=== PATIENT | female | born 1985 | race Caucasian/White ===

== ENCOUNTER 2022-05-21 10:39 | Outpatient (CLI) | payer OTHER, SELFPAY ==
--- NOTE | ~2022-05-21 | MR_ITS ---
EXAMINATION: MR breast BI wo/w con INDICATION: Bilateral breast pain, fibrocystic change of the breast TECHNIQUE: Axial VIBRANT pre and dynamic post contrast, Sagittal VIBRANT post contrast, Axial T2 STIR ASSET COMPARISON: None CONTRAST: Multihance, 15 cc BREAST COMPOSITION: Extreme fibroglandular tissue FINDINGS: RIGHT BREAST: There is marked background parenchymal enhancement. No abnormal enhancement is present after contrast administration. No pathologically enlarged axillary or internal mammary lymph nodes ar e identified. There are multiple cysts of the breast which measure up to 12 mm in the lower inner roger ast. LEFT BREAST: There is marked background parenchymal enhancement. No abnormal enhancement is present a fter contrast administration. No pathologically enlarged axillary or internal mammary lymph nodes are identified. There are multiple cysts of the breast which measure up to 16 mm in the upper outer [address]. IMPRESSION: 1. Fibrocystic change of the breasts without suspicious findings. Routine screening mammography is re commended. BI-RADS Category 2: Benign finding(s). Reviewed, dictated and finalized at location A. IMPRESSION: 1. Fibrocystic change of the breasts without suspicious findings. Routine scree angella mammography is recommended. BI-RADS Category 2: Benign finding(s).
== END 2022-05-21 10:40 | disposition home or self-care (01) ==
PROVIDERS: PCP Family Medicine; Visit Provider Family Medicine
DX: N64.4 Mastodynia (principal); R92.8 Other abnormal and inconclusive findings on diagnostic imaging of breast
CPT/HCPCS: 77049; A9577; C8908

== ENCOUNTER 2022-09-09 01:51 | Day surgery (SDC) | payer OTHER, SELFPAY ==
[2022-08-26 10:17] VITALS: BMI 29.3
--- NOTE | 2022-08-26 10:24 | PC.NURSE ---
Report to the Outpatient Waiting Room, entrance under the green pavilion located off [facility], at time 06:00AM on date 09/09/22. Planned Procedure Time: 07:30AM. Time changes happen often and if your time is changed the preop area will call you the afternoon before. - You and your visitor will be asked to self-screen and do not enter if you have any COVID symptoms. - Only one visitor is requested with a max of two and NO children visitors are allowed at this time. - The patient visitor may be requested to leave or wait in car when not with patient due to distancing restrictions. - A mask is optional within the hospital. Patients may have clear liquids (water, carbonated beverages, clear teas, apple juice) until 3 hours prior to surgery (4:30AM) with a maximum of 20 ounces. - No food from midnight until time of surgery Take the following medications with a SIP of water the morning of surgery: SYNTHROID Medications to discontinue per physician: N/A Date to take last dose: N/A Please no make-up, nail macanese, hairspray, perfume, deodorant, or body powder the day of surgery. No jewelry (including any body piercings) or valuables the day of surgery, leave them at home. Please take a shower or bath the night before, or the morning of, surgery with an antibacterial soap. Wear comfortable, loose fitting clothing. - Jewelry must be removed prior to entering the operating room. Rings and piercings that are not removed may be cut off. - The hospital will not accept responsibility for valuables. - Please leave all valuables, including medications, at home the day of surgery. If you are going home after surgery, a licensed bus driver supervisor must drive you home. - NO public transportation without another adult if you receive anesthesia. - We recommend that an adult stay with you for 24 hours following discharge. - We also recommend that you do not drive, make important decision, drink alcoholic beverages, or take any drugs that were not prescribed by your health care provider for at least 24 hours after your discharge time. Follow any additional instructions given to you from your surgeon. If you or anyone in your household have experienced Covid symptoms in the past week, please notify your surgeon or the nurse liaison at the phone number below for possible testing. Telephone instructions given to PATIENT and asked if any additional questions and then verbalized understanding. Patient advised to call surgeon office or pre surgery nurse liaison [phone] if any additional questions.
[2022-09-09] VITALS (10 sets, daily range): BP systolic 96–115; BP diastolic 45–68; PULSE 54–78; RESP 14–16; TEMP 36.2–36.3; O2SAT 100
[2022-09-09] MEDS: ACETAMINOPHEN 500 MG TABLET 1000 MG PO (06:32)
[2022-09-09] MEDS: KETOROLAC 15 MG/ML VIAL (*BKC) IV PUSH (06:39)
[2022-09-09] MEDS: LACTATED RINGERS 1,000 ML 30 ML IV CONT ×2 (06:40→09:14)
--- NOTE | 2022-09-09 07:11 | P.PNAN_ITS ---
Anes - Initial Pre Proc Eval Procedure: Operation Date: 09/09/22 07:30 Proposed Procedures p Laparoscopic Bilateral Salpingectomy - Marissa Beaver MD Date/Time: 09/09/22 07:11 Surgeon: Marissa Beaver MD Pre Op Diagnosis: sterilization Patient Data Age: 36 Gender: F Height: 1.65 m Weight: 78.9 kg Last Vital Signs Temp 97.4 F L 09/09/22 06:13 Pulse 75 09/09/22 06:13 Resp 16 09/09/22 06:13 BP 115/62 09/09/22 06:13 Pulse Ox 100 09/09/22 06:13 O2 Del Method Room Air 09/09/22 06:13 Allergies Allergy/AdvReac Type Severity Reaction Status Date / Time amoxicillin Allergy Mild Rash Verified 09/09/22 06:29 Home Medications Medication Instructions Recorded Confirmed Type levothyroxine 50 mcg tablet 50 mcg PO DAILY 03/14/21 09/09/22 History (Synthroid) Patient hx anesthesia problems: none Family hx anesthesia problems: none Results Review: All pre-operative results and documents have been reviewed as part of the pre- operative evaluation. [facility] Social History Social History Smoking status: Never smoker Second hand tobacco smoke exposure: No Alcohol intake: current Alcohol use details: RARE SOCIAL DRINKING X2/MONTH Substance use: never Substance use type: does not use Living arrangements: with family Additional living arrangements comments: , has 1 child Additional occupation/education comments: [employer] Spiritual care concerns: No Anes - Eval Final PreProcedure Day of Procedure 09/09/22 07:11 Patient weight: normal Heart: regular rate and rhythm Lungs: clear to auscultation Airway: Mallampati scale class II Neurological: alert and oriented Last oral intake: >/= 8 hours ASA classification: II Emergent: no Anesthetic plan: proceed Anesthesia type and monitoring: general ETT and standard monitoring Results Review: All pre-operative results and documents have been reviewed as part of the pre- operative evaluation. Informed Consent: The patient's anesthetic plan and its attendant risks and benefits were discussed with the patient/family/POA. Questions were solicited and answers provided to the satisfaction of the patient/family/POA.
--- NOTE | 2022-09-09 07:17 | WPDHPUPDATE1 ---
History and Physical Update Update Date/Time: 09/09/22 07:17 History and Physical has been reviewed, including an updated exam of the patient. There are NO changes in the patient's condition. Risks, benefits, and alternatives have been discussed and questions answered. Patient agrees to proceed with procedure.
--- NOTE | 2022-09-09 07:21 | PM.IMHP ---
H&P: HPI History of Present Illness Date/Time: 09/09/22 07:21 Chief Complaint: Unwanted fertility Narrative: this patient is a 36-year-old female presents for female sterilization. We have agreed to perform laparoscopic bilateral salpingectomy. She understands the risk of the surgery that include injury to organs. Injuries could result in hospitalization, more surgery, and severe illness. She understands risk of hemorrhage and infection. She is where the risks, benefits, and alternatives. She has completed the informed consent process is ready to proceed. Review of Systems Review of Systems: All systems reviewed & are unremarkable except as noted in HPI and below Constitutional: Constitutional: Denies chills, Denies fatigue, Denies fever(s) and Denies weakness Eyes: Eyes: Denies blurry vision, Denies change in vision, Denies loss of peripheral vision, Denies loss of vision, Denies other visual disturbances and Denies eye pain ENT: Denies vertigo, Denies dizziness, Denies hearing loss, Denies mouth pain, Denies nasal obstruction, Denies neck mass and Denies neck pain Cardiovascular: Cardiovascular: Denies chest pain, Denies diaphoresis, Denies syncope, Denies leg edema and Denies dyspnea Respiratory: Respiratory: Denies chest congestion, Denies cough, Denies hemoptysis, Denies dyspnea and Denies wheezing Gastrointestinal: Gastrointestinal: Denies abdominal pain, Denies constipation, Denies diarrhea, Denies nausea and Denies vomiting Genitourinary: Genitourinary: Denies hematuria, Denies change in libido, Denies nocturia, Denies genital lesions, Denies flank pain and Denies urinary urgency Musculoskeletal: Musculoskeletal: Denies abnormal gait, Denies back pain, Denies myalgias, Denies arthralgias, Denies joint swelling, Denies muscle weakness and Denies neck pain Integumentary/Breasts: Skin/Breast: Denies swelling, Denies breast pain, Denies breast mass, Denies dry skin, Denies nipple discharge, Denies unusual bruising and Denies jaundice Neurologic: Denies Neuro-related abnormal movements, Denies Abnormal speech present, Denies abnormal gait, Denies behavioral changes, Denies confusion, Denies vertigo, Denies dizziness, Denies syncope, Denies loss of vision, Denies memory loss, Denies convulsions and Denies weakness Psychiatric: Psychiatric: Denies abnormal sleep pattern, Denies behavioral changes, Denies change in libido, Denies confusion, Denies depression, Denies anhedonia and Denies memory loss Endocrine: Endocrine: Reports no additional endocrine complaints, Denies change in libido and Denies fatigue Hematologic/Lymphatic: Hematologic/Lymphatic: Reports no additional hematologic/lymphatic complaints Allergic/Immunologic: Allergic/Immunologic: Reports no additional allergic/immunologic complaints and Denies wheezing PMFSH Social History Social History Smoking status: Never smoker Second hand tobacco smoke exposure: No Alcohol intake: current Alcohol use details: RARE SOCIAL DRINKING X2/MONTH Substance use: never Substance use type: does not use Living arrangements: with family Additional living arrangements comments: , has 1 child Additional occupation/education comments: [employer] Spiritual care concerns: No Meds Home Medications and Allergies Home Medications Medication Instructions Recorded Confirmed Type levothyroxine 50 mcg tablet 50 mcg PO DAILY 03/14/21 09/09/22 History (Synthroid) Allergies Allergy/AdvReac Type Severity Reaction Status Date / Time amoxicillin Allergy Mild Rash Verified 09/09/22 06:29 Vital Signs Vital Signs - 24 hr 09/09/22 06:13 Temperature 97.4 F L Pulse Rate 75 Respiratory Rate 16 Blood Pressure 115/62 Pulse Oximetry 100 Oxygen Delivery Room Air Exam Const: General: cooperative, healthy appearing, comfortable and no acute distress; No confusion Orientation/conscio
--- NOTE | 2022-09-09 08:08 | W.PM.PROC2 ---
Procedure Note - Detailed Date of Procedure 09/09/22 Pre-op Diagnosis sterilization Post-op Diagnosis Same Procedure Performed Laparoscopic bilateral salpingectomy Surgeon Marissa Beaver MD Anesthesia General Indications Unwanted fertility Findings Normal pelvic anatomy Description of Procedure The patient was taken the operating room. She was prepped and draped in the dorsal lithotomy position after induction of general anesthesia. A 5 mm skin incision was made in the left upper quadrant of the abdominal skin. A 5 mm trocar was inserted the intra-abdominal cavity under direct visualization of the scope. Pneumoperitoneum was achieved. A 5 mm trocar was inserted in the left lower quadrant identical fashion. A 5 mm infraumbilical trocar was inserted in identical fashion as well. The bilateral fallopian tubes were removed. This was done by using a LigaSure cautery. The mesosalpinx adjacent to the tube was cauterized transected with LigaSure. This was initiated in the area the ovary and in a stepwise fashion moved medially to the area of the cornu of the uterus. Once there the fallopian tube was cauterized and transected. This was done in identical fashion on each side. The fallopian tubes were taken out through the left lower quadrant trocar site. The pneumoperitoneum was reduced. The trocars removed. The skin was closed with subcuticular 4 Monocryl and covered with Dermabond. She was taken to cover stable condition. Sponge lap and needle counts were correct x2. Estimated Blood Loss 5 Drains No Packing No Pathology Yes Complications No immediate complications Condition Stable Disposition PACU
[2022-09-09] MEDS: fentaNYL CITRATE INJ (*CRX) 100 MCG/2 ML VIAL 25 MCG IV PUSH ×4 (08:36→08:49)
[2022-09-09] MEDS: oxyCODONE HCL (*CRX) 5 MG TAB IR PO (10:09)
== END 2022-09-09 11:00 | disposition home or self-care (01) ==
PROVIDERS: PCP Family Medicine; Visit Provider Obstetrics & Gynecology
PROC: (CPT 49320; principal; 2022-09-09 07:30)
DX: Z30.2 Encounter for sterilization (principal)
CPT/HCPCS: 58661; 88302; A9270; J1100; J1885; J2250; J2405; J2704; J2710; J3010; J7030; J7120

== ENCOUNTER 2024-01-31 12:51 | Outpatient (CLI) | payer OTHER, SELFPAY ==
--- NOTE | ~2024-01-31 | MR_ITS ---
MR breast BI wo/w con 02/01/2024 13:46 CDT INDICATION: Dense breasts. High risk. Family history of breast cancer. TECHNIQUE: MRI of the breasts perform using standard protocol pre-and post IV contrast with the follo wing sequences: Axial T2 STIR, axial T1, axial vibrant T1 with fat suppression precontrast and multip hasic postcontrast. 14 cc MultiHance administered intravenously COMPARISON: FINDINGS: Study is significantly limited due to dense breast and marked bilateral background enhancem ent. There are no abnormalities on the precontrast sequences. There is marked background parenchymal enhancement. There are innumerable areas of nodular enhancement throughout both breasts, consistent w ith background enhancement. No discrete suspicious mass identified. There are multiple bilateral del[address] st cysts, largest on the right measuring approximately 2.8 cm and on the left measuring 2.6 cm. No ev idence of signal abnormalities in the axillary or internal mammary node distributions. IMPRESSION: 1: Limited study due to marked nodular background enhancement with multiple superimposed cysts. No demarco spicious enhancing masses are identified. Correlation with diagnostic bilateral mammogram and complet e bilateral breast ultrasound recommended for further assessment. BI-RADS CATEGORY 0 - INCOMPLETE STUDY, NEED ADDITIONAL IMAGING EVALUATION. Reviewed, dictated and finalized at location B. IMPRESSION: 1: Limited study due to marked nodular background enhancement with multiple sup erimposed cysts. No suspicious enhancing masses are identified. Correlation wit h diagnostic bilateral mammogram and complete bilateral breast ultrasound recom mended for further assessment. BI-RADS CATEGORY 0 - INCOMPLETE STUDY, NEED ADDITIONAL IMAGING EVALUATION.
== END 2024-01-31 12:52 | disposition home or self-care (01) ==
PROVIDERS: PCP Family Medicine; Visit Provider Family Medicine
DX: R92.8 Other abnormal and inconclusive findings on diagnostic imaging of breast (principal); R92.2 Inconclusive mammogram
CPT/HCPCS: 77049; A9577; C8908